=== PATIENT | female | born 1955 | race African-American/Black ===

== ENCOUNTER 2016-11-30 08:26 | Emergency (ER) | payer OTHER ==
[2016-11-30] MEDS ORDERED: LORazepam INJ* 2 MG/ML 1 ML VIAL IV ONE (09:11)
--- NOTE | 2016-11-30 10:37 | ED ---
Palpitations / Dysrhythmia - HPI Summary HPI Summary: Patient arrives to ED with CC of insomnia and anxiety since yesterday. She has a PMHx of anxiety and takes seroquel daily. She denies taking medication for breakthrough anxiety. She had previously been on klonopin, but her PCP DC'd this d/t addictive side effects per patient. 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 She has an upcoming stress test next week. She arrives today with concern over insomnia and feeling "jumpy." Denies drug use. Denies smoking hx. - History of Current Complaint Chief Complaint: EDGeneral Time Seen by Provider: 11/30/16 08:37 Hx Obtained From: Patient Onset/Duration: Sudden Onset Timing: Constant Severity Initially: Moderate Severity Currently: Moderate Character: Fast Associated Signs & Symptoms: Negative - Risk Factors Cardiac: Prior MO, CAD Pulmonary Embolism: Negative Atrial Fibrillation: Negative - Allergy/Home Medications Allergies/Adverse Reactions: Allergies Allergy/AdvReac Type Severity Reaction Status Date / Time No Known Allergies Allergy Verified 11/30/16 08:36 PMH/Surg Hx/FS Hx/Imm Hx Previously Healthy: Yes - previous MO Infectious Disease History: No Infectious Disease History: Denies: Traveled Outside the [place] in Last 30 Days - Social History Occupation: Unemployed Lives: With Family Alcohol Use: None Hx Substance Use: No Substance Use Type: Reports: None Smoking Status (MU): Light Every Day Tobacco Smoker Review of Systems Positive: Chills Eyes: Negative Positive: Palpitations - feeling racing heart Respiratory: Negative Gastrointestinal: Negative Genitourinary: Negative Positive: no symptoms reported, see HPI Neurological: Negative Positive: Anxious All Other Systems Reviewed And Are Negative: Yes Physical Exam Triage Information Reviewed: Yes Vital Signs On Initial Exam: Initial Vitals Temp Pulse Resp BP Pulse Ox 98.2 F 103 16 143/96 99 11/30/16 08:36 11/30/16 08:36 11/30/16 08:36 11/30/16 08:36 11/30/16 08:36 Vital Signs Reviewed: Yes Appearance: Positive: Well-Appearing, Well-Nourished Skin: Positive: Warm, Skin Color Reflects Adequate Perfusion Head/Face: Positive: Normal Head/Face Inspection Eyes: Positive: EOMI, VALE, Conjunctiva Clear Neck: Positive: Supple, No Lymphadenopathy Respiratory/Lung Sounds: Positive: Clear to Auscultation, Breath Sounds Present Cardiovascular: Positive: Tachycardia Abdomen Description: Positive: Nontender Musculoskeletal: Positive: Normal, Strength/ROM Intact Neurological: Positive: Normal, Sensory/Motor Intact, Alert, Oriented to Person Place, Time Psychiatric: Positive: Affect/Mood Appropriate, Anxious AVPU Assessment: Alert - Viki Coma Scale Coma Scale Total: 15 Diagnostics - Vital Signs Vital Signs Temp Pulse Resp BP Pulse Ox 11/30/16 10:17 18 11/30/16 08:36 98.2 F 103 16 143/96 99 - Laboratory Result Diagrams: 11/30/16 10:15 11/30/16 10:15 Lab Statement: Any lab studies that have been ordered have been reviewed, and results considered in the medical decision making process. Course/Dx - Course Course Of Treatment: Labs WNL. 1mg ativan given in ED. Patient feeling better. NSR on discharge. Feeling tired and OK with discharge and follow up. Rx sent for ativan for breakthrough anxiety sxs. - Diagnoses Differential Diagnosis/HQI/PQRI: Positive: Medication Induced, Paroxymal SVT, Other - anxiety, MO Provider Diagnoses: Insomnia Discharge - Discharge Plan Condition: Stable Disposition: HOME Prescriptions: LORazepam TAB(*) [Ativan 1 MG TAB (*)] 1 mg PO Q8H PRN #15 tab MDD 3 PRN Reason: Anxiety Patient Education Materials: Insomnia (ED), Anxiety (ED) Referrals: [facility], [Primary Care Provider] - Additional Instructions: Take ativan 1mg only as needed for breakthrough anxiety or insomnia. You may take benadryl 25mg at bedtime for insomnia. If after several hours you are not seeing results, you may take the ativan. Please follow up with your PCP.
[2016-11-30 10:47] LABS: Hematocrit 44 % (35-47); Hemoglobin 14.4 g/dl (12.0-16.0); Mean Corpuscular HGB Conc 33 g/dl (31-36); Mean Corpuscular Hemoglobin 30 pg (27-31); Mean Corpuscular Volume 92 fL (80-97); Mean Platelet Volume 9 um3 (7.4-10.4); Red Blood Count 4.75 10^6/ul (4.0-5.4); Red Cell Distribution Width 14 % (10.5-15); White Blood Count 7.2 10^3/ul (3.5-10.8)
[2016-11-30 11:03] LABS: Albumin 4.4 g/dL (3.2-5.2); BUN/Creatinine Ratio 17.7 (8-20); Calcium 10.1 mg/dL (8.6-10.3); EGFR African American 126.7 (>60); EGFR Non-African American 98.5 (>60); Globulin 3.2 g/dL (2-4); Magnesium 2.3 mg/dL (1.9-2.7); Potassium 3.8 mmol/L (3.5-5.0); Total Bilirubin 0.5 mg/dL (0.2-1.0); Total Protein 7.6 g/dL (6.4-8.9)
[2016-11-30 11:47] VITALS: BP 155/94
[2016-11-30 12:57] LABS: TSH (Thyroid Stimulating Horm) 0.44 mcIU/mL (0.34-5.60)
== END 2016-11-30 11:42 | disposition home or self-care (01) ==
LOC: ED 08:26
DX: G47.00 Insomnia, unspecified (principal); F17.200 Nicotine dependence, unspecified, uncomplicated; I25.2 Old myocardial infarction; F41.9 Anxiety disorder, unspecified
CPT/HCPCS: 36415; 80053; 83735; 84443; 84484; 85025; 86703; 86803; 93005; 96374; 99283; J2060

== ENCOUNTER 2016-12-02 15:52 | Emergency (ER) | payer OTHER ==
[2016-12-02] MEDS ORDERED: Ondansetron INJ* 2 MG/ML VIAL IV ONE ×2 (17:26→19:08)
[2016-12-02] MEDS ORDERED: Morphine INJ* 4 MG/ML 1 ML CARPUJECT IV ONE (17:26)
[2016-12-02] MEDS: NS 0.9% 1000 ML* 2,000 ML IV ONE ×2 (17:36→17:39)
--- NOTE | 2016-12-02 18:35 | RAD ---
Indication: Nausea and vomiting. Single frontal view of the chest performed at 1740 hours was reviewed. No prior study is available for comparison.. No mediastinal shift is noted. Heart is of normal size and configuration. Lung shelton appear clear. IMPRESSION: NO ACTIVE CARDIOPULMONARY DISEASE IS NOTED.
[2016-12-02 18:48] LABS: Hematocrit 45 % (35-47); Hemoglobin 14.6 g/dl (12.0-16.0); Mean Corpuscular HGB Conc 33 g/dl (31-36); Mean Corpuscular Hemoglobin 30 pg (27-31); Mean Corpuscular Volume 92 fL (80-97); Mean Platelet Volume 8 um3 (7.4-10.4); Red Blood Count 4.88 10^6/ul (4.0-5.4); Red Cell Distribution Width 14 % (10.5-15); White Blood Count 7.6 10^3/ul (3.5-10.8)
[2016-12-02 19:03] LABS: ALT 12 U/L (7-52); AST 22 U/L (13-39); Albumin 4.2 g/dL (3.2-5.2); Alkaline Phosphatase 65 U/L (34-104); Anion Gap 8 mmol/L (2-11); BUN/Creatinine Ratio 17.4 (8-20); Blood Urea Nitrogen 12 mg/dL (6-24); C Reactive Protein < 1.00 mg/L (< 5.00); CO2 Carbon Dioxide 24 mmol/L (22-32); Calcium 8.6 mg/dL (8.6-10.3); Chloride 106 mmol/L (101-111); EGFR Non-African American 87.1 (>60); Globulin 3.1 g/dL (2-4); Glucose 108 mg/dL (70-100); Lipase 14 U/L (11.0-82.0); Magnesium 1.8 mg/dL (1.9-2.7); Potassium 3.7 mmol/L (3.5-5.0); Sodium 138 mmol/L (133-145); Total Protein 7.3 g/dL (6.4-8.9)
[2016-12-02] MEDS ORDERED: LORazepam INJ* 2 MG/ML 1 ML VIAL IV PUSH ONE (19:20)
[2016-12-02] MEDS ORDERED: NS 0.9% 1000 ML* 1,000 ML IV ONE (19:21)
--- NOTE | 2016-12-02 19:24 | ED ---
Jose Laureano Alok, scribed for Niecy Loera MD on 12/02/16 at 1723 . Complex/Multi-Sys Presentation - HPI Summary HPI Summary: 61 y/o female presents to the ED with N/V/D and abd pain as of this morning. Pt last was at the ED for anxiety 3 days ago. Pt family states that she has had very little appetite for the past few months and has not eaten at all for the past 5 days. Pt states that eating makes her nausea feel worse. Pt takes 1mg Lorazepam and suffers from anxiety and depression w/o SI. Pt recently traveled to [place] from her permanent residence in [facility] 6 days ago. Pt states that travel usually makes her anxiety worse. Pt is also a light tobacco smoker. - History Of Current Complaint Chief Complaint: EDNauseaVomitDiarrh Time Seen by Provider: 12/02/16 16:39 Hx Obtained From: Patient, Family/Plastic Tile Layer Onset/Duration: Gradual Onset, Lasting Days, Still Present Timing: Constant Severity Currently: Moderate Severity Initially: Moderate Associated Signs And Symptoms: Positive: Nausea, Vomiting, Diarrhea, Abdominal Pain Related History: Other - Recent Travel - Allergies/Home Medications Allergies/Adverse Reactions: Allergies Allergy/AdvReac Type Severity Reaction Status Date / Time No Known Allergies Allergy Verified 12/02/16 15:56 PMH/Surg Hx/FS Hx/Imm Hx Psychiatric History: Reports: Hx Anxiety, Hx Depression Infectious Disease History: No Infectious Disease History: Denies: Traveled Outside the in Last 30 Days - Family History Known Family History: Negative: Cardiac Disease - Social History Alcohol Use: None Hx Substance Use: No Substance Use Type: Reports: None Smoking Status (MU): Light Every Day Tobacco Smoker Review of Systems Negative: Fever Positive: Abdominal Pain, Vomiting, Diarrhea, Nausea Positive: Anxious All Other Systems Reviewed And Are Negative: Yes Physical Exam Triage Information Reviewed: Yes Vital Signs On Initial Exam: Initial Vitals Temp Pulse Resp BP Pulse Ox 97.4 F 103 16 149/96 100 12/02/16 15:56 12/02/16 15:56 12/02/16 15:56 12/02/16 15:56 12/02/16 15:56 Vital Signs Reviewed: Yes Appearance: Positive: Ill-Appearing - Moderate, Pain Distress - Moderately Uncomfortable Skin: Positive: Warm, Skin Color Reflects Adequate Perfusion, Dry Eyes: Positive: EOMI, VALE ENT: Positive: TMs normal, Other - Dry Oral Mucosis Neck: Positive: Supple, Nontender Respiratory/Lung Sounds: Positive: Clear to Auscultation, Breath Sounds Present. Negative: Rales, Rhonchi, Wheezes Cardiovascular: Positive: RRR. Negative: Murmur, Rub, Other - Gallops Abdomen Description: Positive: Soft, Other: - Diffuse Belly Tenderness Bowel Sounds: Positive: Present Musculoskeletal: Positive: Strength/ROM Intact. Negative: Edema Left, Edema Right Neurological: Positive: Sensory/Motor Intact, Alert, Oriented to Person Place, Time, CN Intact II-III Psychiatric: Positive: Affect/Mood Appropriate Diagnostics - Vital Signs Vital Signs Temp Pulse Resp BP Pulse Ox 12/02/16 15:56 97.4 F 103 16 149/96 100 - Laboratory Lab Results: Lab Results 12/02/16 12/02/16 12/02/16 Range/Units 18:35 18:35 18:35 WBC 7.6 (3.5-10.8) 10^3/ul RBC 4.88 (4.0-5.4) 10^6/ul Hgb 14.6 (12.0-16.0) g/dl Hct 45 (35-47) % MCV 92 (80-97) fL MCH 30 (27-31) pg MCHC 33 (31-36) g/dl RDW 14 (10.5-15) % Plt Count 261 (150-450) 10^3/ul MPV 8 (7.4-10.4) um3 Neut % (Auto) 85.9 H (38-83) % Lymph % (Auto) 10.9 L (25-47) % Posey % (Auto) 2.6 (1-9) % Eos % (Auto) 0.1 (0-6) % Baso % (Auto) 0.5 (0-2) % Absolute Neuts (auto) 6.5 (1.5-7.7) 10^3/ul Absolute Lymphs (auto) 0.8 L (1.0-4.8) 10^3/ul Absolute Monos (auto) 0.2 (0-0.8) 10^3/ul Absolute Eos (auto) 0 (0-0.6) 10^3/ul Absolute Basos (auto) 0 (0-0.2) 10^3/ul Absolute Nucleated RBC 0 10^3/ul Nucleated RBC % 0 Sodium 138 (133-145) mmol/L Potassium 3.7 (3.5-5.0) mmol/L Chloride 106 (101-111) mmol/L Carbon Dioxide 24 (22-32) mmol/L Anion Gap 8 (2-11) mmol/L BUN 12 (6-24) mg/dL Creatinine 0.69 (0.51-0.95) mg/dL Est GFR ( Amer) 112.0 (>60) Est GFR (Non-Af Amer) 87.1 (>60) BUN/Creatinine Ratio 17.4 (8-20) Glucose 108 H (70-100) mg/dL Lactic Acid 1.1 (0.5-2.0) mmol/L Calcium 8.6 (8.6-10.3) mg/dL Magnesium 1.8 L (1.9-2.7) mg/dL Total Bilirubin 0.60 (0.2-1.0) mg/dL AST 22 (13-39) U/L ALT 12 (7-52) U/L Alkaline Phosphatase 65 (34-104) U/L C-Reactive Protein < 1.00 (< 5.00) mg/L Total Protein 7.3 (6.4-8.9) g/dL Albumin 4.2 (3.2-5.2) g/dL Globulin 3.1 (2-4) g/dL Albumin/Globulin Ratio 1.4 (1-3) Lipase 14 (11.0-82.0) U/L Result Diagrams: 12/02/16 18:35 12/02/16 18:35 Lab Statement: Any lab studies that have been ordered have been reviewed, and results considered in the medical decision making process. - Radiology CXR Xray Interpretation: Positive (See Comments) - IMPRESSION: NO ACTIVE CARDIOPULMONARY DISEASE IS NOTED. Radiology Interpretation Completed By: Radiologist Complex Multi-Symp Course/Dx Course Of Treatment: pt is feeling much better after 2 L of fluid is going to drink power aid at home, still a bit nauseas going to give one dose of 0.5 mg Iv ativan here. Her plan is to go home to [facility] tomorrow - Diagnoses Provider Diagnoses: Gastroenteritis Discharge - Discharge Plan Condition: Stable Disposition: HOME The documentation as recorded by the Jose landaverde Alok accurately reflects the service I personally performed and the decisions made by me, Niecy Loera MD.
[2016-12-02 20:41] VITALS: BP 141/85
== END 2016-12-02 20:40 | disposition home or self-care (01) ==
LOC: ED 15:52
DX: K52.9 Noninfective gastroenteritis and colitis, unspecified (principal); R11.2 Nausea with vomiting, unspecified; R19.7 Diarrhea, unspecified; R10.9 Unspecified abdominal pain
CPT/HCPCS: 36415; 71010; 80053; 83605; 83690; 83735; 85025; 86140; 96374; 96375; 99282; J2060; J2270; J2405

== ENCOUNTER 2017-06-26 17:04 | Emergency (ER) | payer OTHER ==
[2017-06-26 17:41] LABS: Hematocrit 41 % (35-47); Mean Corpuscular HGB Conc 34 g/dl (31-36); Mean Corpuscular Hemoglobin 31 pg (27-31); Mean Corpuscular Volume 90 fL (80-97); Mean Platelet Volume 8 um3 (7.4-10.4); Red Blood Count 4.56 10^6/ul (4.0-5.4); Red Cell Distribution Width 14 % (10.5-15); White Blood Count 6.8 10^3/ul (3.5-10.8)
[2017-06-26 17:56] LABS: ALT 14 U/L (7-52); AST 26 U/L (13-39); Albumin 4.6 g/dL (3.2-5.2); Alkaline Phosphatase 78 U/L (34-104); Anion Gap 8 mmol/L (2-11); BUN/Creatinine Ratio 11.3 (8-20); Blood Urea Nitrogen 8 mg/dL (6-24); C Reactive Protein 1.99 mg/L (< 5.00); CO2 Carbon Dioxide 29 mmol/L (22-32); Calcium 9.9 mg/dL (8.6-10.3); Chloride 98 mmol/L (101-111); EGFR African American 108.4 (>60); EGFR Non-African American 84.3 (>60); Globulin 3.7 g/dL (2-4); Glucose 134 mg/dL (70-100); Lipase < 10 U/L (11.0-82.0); Potassium 3.3 mmol/L (3.5-5.0); Sodium 135 mmol/L (133-145); Total Protein 8.3 g/dL (6.4-8.9)
[2017-06-26] MEDS ORDERED: Ondansetron INJ* 2 MG/ML VIAL IV ONE (18:08)
[2017-06-26] MEDS ORDERED: Ondansetron ODT TAB* 4 MG SL ONE ×3 (18:12→20:41)
[2017-06-26] MEDS ORDERED: Al Hydrox/Mg Hydrox/Simet LIQ* 30 ML UDC PO ONE ×3 (18:12→20:40)
[2017-06-26] MEDS ORDERED: Famotidine TAB* 20 MG PO ONE (18:12)
[2017-06-26 20:34] VITALS: BP 179/89
[2017-06-26 20:46] LABS: Urine Bacteria Absent (Absent); Urine Bilirubin Negative (Negative); Urine Glucose Negative (Negative); Urine Nitrite Negative (Negative)
--- NOTE | 2017-06-26 20:50 | ED ---
Abdominal Pain/Female - HPI Summary HPI Summary: Patient presents to the ED with CC of epigastric pain x 2 days. She states she hasn't slept for several days and has anxiety at baseline. She notes to nausea and vomiting and intermittent diarrhea, but denies constipation. She has been seen here before for similar symptoms of anxiety and insomnia. Has a history of gastritis, but takes no medications. She is requesting pain medication and anxiety medication on arrival. She denies urinary symptoms, or other abdominal pain. She notes to decreased appetite today d/t N/V. Denies fevers, sweats or chills. Denies cardiac history including any current chest pain, SOB or GOLDBERG. - History of Current Complaint Chief Complaint: EDAbdPain Stated Complaint: UNABLE TO EAT/VOMITING Time Seen by Provider: 06/26/17 17:45 Hx Obtained From: Patient ?: No Onset/Duration: Sudden Onset Timing: Constant Severity Initially: Moderate Severity Currently: Moderate Pain Intensity: 0 Pain Scale Used: 0-10 Numeric Location: Epigastric Radiates: No Character: Burning Aggravating Factor(s): Nothing Alleviating Factor(s): Spontaneous Resolution Associated Signs and Symptoms: Positive: Nausea, Vomiting - Risk Factors Ectopic Risk Factor: Maternal Age ^ 30 Allergies/Adverse Reactions: Allergies Allergy/AdvReac Type Severity Reaction Status Date / Time No Known Allergies Allergy Verified 12/02/16 15:56 PMH/Surg Hx/FS Hx/Imm Hx Previously Healthy: Yes Psychiatric History: Reports: Hx Anxiety, Hx Depression - Immunization History Hx Pertussis Vaccination: No Immunizations Up to Date: Unable to Obtain/Confirm Infectious Disease History: No Infectious Disease History: Denies: Traveled Outside the [place] in Last 30 Days - Family History Known Family History: Negative: Cardiac Disease - Social History Occupation: Unemployed Lives: With Family Alcohol Use: None Hx Substance Use: No Substance Use Type: Reports: None Smoking Status (MU): Light Every Day Tobacco Smoker Review of Systems Constitutional: Negative Eyes: Negative Respiratory: Negative Positive: Abdominal Pain, Vomiting, Nausea Genitourinary: Negative Positive: no symptoms reported, see HPI Musculoskeletal: Negative Neurological: Negative Positive: Anxious All Other Systems Reviewed And Are Negative: Yes Physical Exam Triage Information Reviewed: Yes Vital Signs On Initial Exam: Initial Vitals Temp Pulse Resp BP Pulse Ox 98.8 F 106 22 181/94 97 06/26/17 17:08 06/26/17 17:08 06/26/17 17:08 06/26/17 17:08 06/26/17 17:08 Vital Signs Reviewed: Yes Appearance: Positive: Well-Appearing, Well-Nourished Skin: Positive: Warm, Skin Color Reflects Adequate Perfusion Head/Face: Positive: Normal Head/Face Inspection Eyes: Positive: EOMI, VALE Respiratory/Lung Sounds: Positive: Clear to Auscultation, Breath Sounds Present Cardiovascular: Positive: Normal, RRR Abdomen Description: Positive: Nontender, No Organomegaly, Soft Musculoskeletal: Positive: Normal, Strength/ROM Intact Neurological: Positive: Sensory/Motor Intact, Alert, Oriented to Person Place, Time Psychiatric: Positive: Anxious - Viki Coma Scale Coma Scale Total: 15 Diagnostics - Vital Signs Vital Signs Temp Pulse Resp BP Pulse Ox 06/26/17 20:33 99.3 F 106 14 179/89 100 06/26/17 17:49 99.5 F 06/26/17 17:43 100 99 06/26/17 17:41 164/77 06/26/17 17:08 98.8 F 106 22 181/94 97 - Laboratory Lab Results: Lab Results 06/26/17 06/26/17 06/26/17 Range/Units 17:32 17:32 17:32 WBC 6.8 (3.5-10.8) 10^3/ul RBC 4.56 (4.0-5.4) 10^6/ul Hgb 14.0 (12.0-16.0) g/dl Hct 41 (35-47) % MCV 90 (80-97) fL MCH 31 (27-31) pg MCHC 34 (31-36) g/dl RDW 14 (10.5-15) % Plt Count 307 (150-450) 10^3/ul MPV 8 (7.4-10.4) um3 Neut % (Auto) 83.7 H (38-83) % Lymph % (Auto) 13.2 L (25-47) % [place] % (Auto) 2.9 (1-9) % Eos % (Auto) 0 (0-6) % Baso % (Auto) 0.2 (0-2) % Absolute Neuts (auto) 5.7 (1.5-7.7) 10^3/ul Absolute Lymphs (auto) 0.9 L (1.0-4.8) 10^3/ul Absolute Monos (auto) 0.2 (0-0.8) 10^3/ul Absolute Eos (auto) 0 (0-0.6) 10^3/ul Absolute Basos (auto) 0 (0-0.2) 10^3/ul Absolute Nucleated RBC 0 10^3/ul Nucleated RBC % 0 Sodium 135 (133-145) mmol/L Potassium 3.3 L (3.5-5.0) mmol/L Chloride 98 L (101-111) mmol/L Carbon Dioxide 29 (22-32) mmol/L Anion Gap 8 (2-11) mmol/L BUN 8 (6-24) mg/dL Creatinine 0.71 (0.51-0.95) mg/dL Est GFR ( Amer) 108.4 (>60) Est GFR (Non-Af Amer) 84.3 (>60) BUN/Creatinine Ratio 11.3 (8-20) Glucose 134 H (70-100) mg/dL Lactic Acid 1.0 (0.5-2.0) mmol/L Calcium 9.9 (8.6-10.3) mg/dL Total Bilirubin 0.70 (0.2-1.0) mg/dL AST 26 (13-39) U/L ALT 14 (7-52) U/L Alkaline Phosphatase 78 (34-104) U/L C-Reactive Protein 1.99 (< 5.00) mg/L Total Protein 8.3 (6.4-8.9) g/dL Albumin 4.6 (3.2-5.2) g/dL Globulin 3.7 (2-4) g/dL Albumin/Globulin Ratio 1.2 (1-3) Lipase < 10 L (11.0-82.0) U/L Urine Color Urine Appearance Urine pH (5-9) Ur Specific Leggett (1.010-1.030) Urine Protein (Negative) Urine Ketones (Negative) Urine Blood (Negative) Urine Nitrate (Negative) Urine Bilirubin (Negative) Urine Urobilinogen (Negative) Ur Leukocyte Esterase (Negative) Urine WBC (Auto) (Absent) Urine RBC (Auto) (Absent) Ur Squamous Epith Cells (Absent) Urine Bacteria (Absent) Urine Glucose (Negative) Urine Ascorbic Acid (Negative) Influenza A (Rapid) (Negative) Influenza B (Rapid) (Negative) 06/26/17 06/26/17 Range/Units 17:45 20:29 WBC (3.5-10.8) 10^3/ul RBC (4.0-5.4) 10^6/ul Hgb (12.0-16.0) g/dl Hct (35-47) % MCV (80-97) fL MCH (27-31) pg MCHC (31-36) g/dl RDW (10.5-15) % Plt Count (150-450) 10^3/ul MPV (7.4-10.4) um3 Neut % (Auto) (38-83) % Lymph % (Auto) (25-47) % [place] % (Auto) (1-9) % Eos % (Auto) (0-6) % Baso % (Auto) (0-2) % Absolute Neuts (auto) (1.5-7.7) 10^3/ul Absolute Lymphs (auto) (1.0-4.8) 10^3/ul Absolute Monos (auto) (0-0.8) 10^3/ul Absolute Eos (auto) (0-0.6) 10^3/ul Absolute Basos (auto) (0-0.2) 10^3/ul Absolute Nucleated RBC 10^3/ul Nucleated RBC % Sodium (133-145) mmol/L Potassium (3.5-5.0) mmol/L Chloride (101-111) mmol/L Carbon Dioxide (22-32) mmol/L Anion Gap (2-11) mmol/L BUN (6-24) mg/dL Creatinine (0.51-0.95) mg/dL Est GFR ( Amer) (>60) Est GFR (Non-Af Amer) (>60) BUN/Creatinine Ratio (8-20) Glucose (70-100) mg/dL Lactic Acid (0.5-2.0) mmol/L Calcium (8.6-10.3) mg/dL Total Bilirubin (0.2-1.0) mg/dL AST (13-39) U/L ALT (7-52) U/L Alkaline Phosphatase (34-104) U/L C-Reactive Protein (< 5.00) mg/L Total Protein (6.4-8.9) g/dL Albumin (3.2-5.2) g/dL Globulin (2-4) g/dL Albumin/Globulin Ratio (1-3) Lipase (11.0-82.0) U/L Urine Color Pretty Urine Appearance Clear Urine pH 6.0 (5-9) Ur Specific Leggett 1.028 (1.010-1.030) Urine Protein 2+(100 mg/dl) H (Negative) Urine Ketones 1+ H (Negative) Urine Blood 1+ H (Negative) Urine Nitrate Negative (Negative) Urine Bilirubin Negative (Negative) Urine Urobilinogen Negative (Negative) Ur Leukocyte Esterase Negative (Negative) Urine WBC (Auto) Trace(0-5/hpf) (Absent) Urine RBC (Auto) 3+(>10/hpf) H (Absent) Ur Squamous Epith Cells Present H (Absent) Urine Bacteria Absent (Absent) Urine Glucose Negative (Negative) Urine Ascorbic Acid * H (Negative) Influenza A (Rapid) Negative (Negative) Influenza B (Rapid) Negative (Negative) Result Diagrams: 06/26/17 17:32 06/26/17 17:32 Lab Statement: Any lab studies that have been ordered have been reviewed, and results considered in the medical decision making process. Abdominal Pain Fem Course/Dx - Course Course Of Treatment: Patient is evaluated for N/V and epigastric pain. History of anxiety and GERD. During her course of treatment, she is given zofran x 2 ODT, Maalox 20ml x 2, tylenol 650mg. She has relief after 2nd dose of maalox. Denies other pain or symptoms. She is reqquesting discharge. She is given these medications for prescriptions with the addition of omeprazole - 30 day supply. Urine with RBC's and dark, but no leuks noted. She denies melena or other abdominal pain or symptoms. She states she is OK with discharge and will follow up with her PCP tomorrow. - Diagnoses Differential Diagnosis: Positive: Diverticulitis, Peptic Ulcer Disease Provider Diagnoses: Gastritis, Nausea & vomiting Discharge - Discharge Plan Condition: Stable Disposition: HOME Prescriptions: Acetaminophen TAB* [Tylenol TAB*] 325 mg PO Q4H PRN #30 tab PRN Reason: Pain Al Hydrox/Mg Hydrox/Simet LIQ* [Maalox Plus*] 30 ml PO Q4H PRN #1 udc PRN Reason: Nausea Omeprazole 40 mg PO DAILY #30 cap Ondansetron ODT TAB* [Zofran 4 MG Odt TAB*] 4 mg PO Q6H PRN #12 tab.odt MDD 4 PRN Reason: Nausea Patient Education Materials: Gastritis (ED) Referrals: Non Staff,Doctor [Primary Care Provider] - Additional Instructions: Please take the Maalox for acid reflux/gastritis symptoms For any pain, take Tylenol 325mg Omeprazole daily - please follow up with your PCP for further refills and evaluation Zofran as needed for nausea Sleep makes your symptoms worse, so get some rest
== END 2017-06-26 21:00 | disposition home or self-care (01) ==
LOC: ED 17:04
DX: K29.70 Gastritis, unspecified, without bleeding (principal); R11.2 Nausea with vomiting, unspecified; R19.7 Diarrhea, unspecified; F41.9 Anxiety disorder, unspecified; F32.9 Major depressive disorder, single episode, unspecified; F17.210 Nicotine dependence, cigarettes, uncomplicated
CPT/HCPCS: 36415; 80053; 81003; 81015; 83605; 83690; 85025; 86140; 87502; 99283; A9270-GY